=== PATIENT | male | born 1935 | race Caucasian/White ===

== ENCOUNTER 2020-04-27 14:55 | Emergency (ER) | payer MEDICARE, OTHER ==
[~2020-04-27] VITALS: Ht 180.3 cm; Wt 104.3 kg
[~2020-04-27 14:55] MED LIST: ALEVE220 MG PO; ASPIRIN EC325 MG PO; BENADRYL25 MG PO; CARVEDILOL12.5 MG PO; CLONIDINE HCL0.1 MG PO; COZAAR100 MG PO; CRESTOR10 MG PO; FINASTERIDE5 MG PO; FLONASE ALLERG9.9 ML NS; FLONASE2 SPRAY NS; GLIPIZIDE XL10 MG PO; HYDROCHLOROTHIA25 MG PO; ICAPS TABLET1 EACH PO; LEVOTHYROXINE75 MCG PO; LOVENOX40 MG SUB-Q; METFORMIN HCL1000 MG PO; OMEPRAZOLE20 MG PO; PRAVASTATIN SOD20 MG PO; PREDNISONE20 MG PO; SENNA8.6 MG PO; VERAPAMIL HCL120 MG PO; VITAMIN D5000 UNIT PO
[2020-04-27] MEDS ORDERED: PROSCAR5 MG PO (16:07)
[2020-04-27] MEDS ORDERED: LEVOTHYROXINE75 MC1 PO (16:07)
[2020-04-27] MEDS ORDERED: OMEPRAZOLE20 M2 PO (16:07)
[2020-04-27] MEDS ORDERED: FLOMAX0.4 MG PO (16:08)
[2020-04-27] MEDS ORDERED: ELIQUIS5 M1 PO (16:08)
[2020-04-27] MEDS ORDERED: FLONASE ALLERG9.9 ML NAS (16:08)
[2020-04-27] MEDS ORDERED: CRESTOR10 MG PO (16:08)
[2020-04-27] MEDS ORDERED: CARTIA XT240 MG PO (16:08)
[2020-04-27] MEDS ORDERED: LISINOPRIL-HCT1 EAC1 PO (16:09)
[2020-04-27] MEDS ORDERED: GLUCOPHAGE XR500 MG PO (16:09)
[2020-04-27] MEDS ORDERED: COREG25 MG PO (16:09)
--- NOTE | 2020-04-28 07:27 | EKG ---
[facility] [address] [place] [address] Signed Normal sinus rhythm with sinus arrhythmia Normal ECG When compared with ECG of 09-DEC-2015 14:48, Sinus rhythm has replaced Atrial flutter Confirmed by ADAM WARD MD ([id number]) on 04/28/2020 7:26:50 AM Electronically Signed By: ADAM WARD MD 04/28/20 0727 PATIENT NAME: SHAWNJESUS CLAYTON Electrocardiogram DATE OF : 39 PHYSICIAN: ADAM WARD MD REPORT #: [id number] REPORT IS CONFIDENTIAL AND NOT TO BE RELEASED WITHOUT AUTHORIZATION
== END 2020-04-27 17:39 | disposition home or self-care (01) ==
LOC: ED 14:55
DX: R55 Syncope and collapse (principal); S93.601A Unspecified sprain of right foot, initial encounter; W18.30XA Fall on same level, unspecified, initial encounter; E11.9 Type 2 diabetes mellitus without complications; I10 Essential (primary) hypertension; E03.9 Hypothyroidism, unspecified; Z88.8 Allergy status to other drugs, medicaments and biological substances; Z79.899 Other long term (current) drug therapy; Z79.84 Long term (current) use of oral hypoglycemic drugs
CPT/HCPCS: 73560; 73630; 93005; 93010; 99284-25

== ENCOUNTER 2024-06-14 06:35 | Emergency (ER) | payer MEDICARE, OTHER ==
[~2024-06-14] VITALS: Ht 180.3 cm; Wt 100.0 kg
[~2024-06-14 06:35] MED LIST changes: +CARTIA XT240 MG PO; +COREG25 MG PO; +ELIQUIS5 M1 PO; +FLOMAX0.4 MG PO; +FLONASE ALLERG9.9 ML NAS; +GLUCOPHAGE XR500 MG PO; +LEVOTHYROXINE75 MC1 PO; +LISINOPRIL-HCT1 EAC1 PO; +OMEPRAZOLE20 M2 PO; +PROSCAR5 MG PO
[2024-06-14] MEDS ORDERED: POTASSIUM CHLOR8 ME1 PO (06:45)
[2024-06-14] MEDS ORDERED: ACETAMINOPHEN 500 MG TAB PO ONE (06:45)
[2024-06-14] MEDS ORDERED: FUROSEMIDE20 MG PO (06:45)
[2024-06-14] MEDS ORDERED: AMIODARONE HCL200 MG PO (06:46)
[2024-06-14 06:51] LABS: BASOPHILS 0.5 % (0-2); EOSINOPHILS 2.6 % (0-6); HEMATOCRIT 32.1 % (35.0-50.0); HEMOGLOBIN 10.9 g/dL (12.0-18.0); MCH 30.7 (27-36); MCHC 33.9 g/dl (30-36); MCV 90.5 fl (81-99); NEUTROPHILS 77.9 % (39-80); PLATELET COUNT 237 K/uL (140-440); RBC 3.54 M/ul (4.3-5.7)
[2024-06-14 07:16] LABS: ALBUMIN 3.5 g/dL (3.4-5.0); ALBUMIN/GLOBULIN RATIO 0.92 (1.1-2.4); BILIRUBIN, TOTAL 0.5 mg/dL (0.2-1.0); BUN/CREATININE RATIO 15.84 (6.0-28.6); CALCIUM 8.8 mg/dL (8.5-10.1); CREATININE, SERUM 1.01 mg/dL (0.70-1.30); PROTEIN, TOTAL 7.3 g/dL (6.4-8.2)
[2024-06-14 07:36] LABS: INFLUENZA B NAA NEGATIVE (NEGATIVE); RESPIRATORY SYNCYTIAL VIR NAA NEGATIVE (NEGATIVE)
[2024-06-14] MEDS ORDERED: AMOX TR-K CLV1 EAC1 PO (07:50)
[2024-06-14] MEDS ORDERED: VENTOLIN HFA18 GM INH (07:52)
[2024-06-14] MEDS ORDERED: AMOXICILLIN/CLAVULANATE K 875 MG TAB PO ONE (08:00)
[2024-06-14 08:03] VITALS: BP 181/78
--- NOTE | 2024-06-15 18:39 | EKG ---
[facility] [address] [facility] [place], [place] [address] Signed Sinus rhythm with 1st degree AV block Otherwise normal ECG When compared with ECG of 27-APR-2020 16:39, TN interval has increased Confirmed by Tashi Rawls MD ([id number]) on 06/15/2024 6:38:52 PM Electronically Signed By: TASHI RAWLS MD 06/15/24 1839 PATIENT NAME: SHAWNJESUS CLAYTON Electrocardiogram DATE OF : 39 PHYSICIAN: TASHI RAWLS MD REPORT #: [id number] REPORT IS CONFIDENTIAL AND NOT TO BE RELEASED WITHOUT AUTHORIZATION
== END 2024-06-14 08:05 | disposition home or self-care (01) ==
LOC: ED 06:35
PROVIDERS: Family Medicine
DX: R06.02 Shortness of breath (principal); J32.0 Chronic maxillary sinusitis; S02.5XXA Fracture of tooth (traumatic), initial encounter for closed fracture; E11.9 Type 2 diabetes mellitus without complications; E03.9 Hypothyroidism, unspecified; I10 Essential (primary) hypertension; Z88.8 Allergy status to other drugs, medicaments and biological substances; Z79.890 Hormone replacement therapy; Z79.01 Long term (current) use of anticoagulants; Z79.84 Long term (current) use of oral hypoglycemic drugs; Z79.899 Other long term (current) drug therapy; X58.XXXA Exposure to other specified factors, initial encounter
CPT/HCPCS: 36415; 70450; 71045; 80053; 83880; 84484; 85025; 87502; 93005; 93010; 99285-25; U0002

== ENCOUNTER 2024-06-26 05:42 | Inpatient (IN) | payer MEDICARE, OTHER ==
[~2024-06-26] VITALS: Ht 180.3 cm; Wt 99.2 kg
[~2024-06-26 05:42] MED LIST changes: +24 HOUR ALLERG9.9 ML NAS; +AMIODARONE HCL200 MG PO; +AMOX TR-K CLV1 EAC1 PO; -ELIQUIS5 M1 PO; +ELIQUIS5 MG PO; -FLONASE ALLERG9.9 ML NAS; +FUROSEMIDE20 MG PO; +POTASSIUM CHLOR8 ME1 PO; +ROSUVASTATIN CA10 MG PO; +VENTOLIN HFA18 GM INH
[2024-06-26 05:59] LABS: BASOPHILS 0.1 % (0-2); EOSINOPHILS 0.1 % (0-6); HEMATOCRIT 32.7 % (35.0-50.0); LYMPHOCYTES 3.8 % (24-44); MCH 30.4 (27-36); MCHC 33.5 g/dl (30-36); MCV 90.7 fl (81-99); MONOCYTES 6.1 % (0-12); NEUTROPHILS 89.9 % (39-80); PLATELET COUNT 264 K/uL (140-440); RDW 15.2 (10.5-15.0)
[2024-06-26 06:23] LABS: ALBUMIN 3.3 g/dL (3.4-5.0); ALBUMIN/GLOBULIN RATIO 0.87 (1.1-2.4); ANION GAP 11.8 (7-21); BILIRUBIN, TOTAL 0.6 mg/dL (0.2-1.0); BUN/CREATININE RATIO 16.03 (6.0-28.6); CALCIUM 8.7 mg/dL (8.5-10.1); CREATININE, SERUM 1.06 mg/dL (0.70-1.30); POTASSIUM 3.8 mmol/L (3.5-5.1); PROTEIN, TOTAL 7.1 g/dL (6.4-8.2); TSH, 3RD GENERATION 1.277 uIU/mL (0.358-3.740)
[2024-06-26] MEDS ORDERED: PIPERACILLIN/TAZOBACTAM 3.375 GM in SODIUM CHLORIDE 0.9% 100 ML IV ONE (07:00)
[2024-06-26] MEDS ORDERED: ondansetron HCL 4 MG/2 ML VIAL IV ONE (07:00)
[2024-06-26] MEDS ORDERED: ondansetron HCL 4 MG/2 ML VIAL IV PRN ×3 (07:00→13:45)
[2024-06-26] MEDS ORDERED: metroNIDAZOLE/SODIUM CHLORIDE 500 MG/100 ML PIGGYBACK IV ONE (07:00)
[2024-06-26] MEDS ORDERED: FAMOTIDINE 20 MG/ 2 ML VIAL IV ONE (07:00)
[2024-06-26] MEDS ORDERED: LACTATED RINGER'S 1,000 ML IV SCH ×3 (07:00→13:45)
[2024-06-26] MEDS ORDERED: MORPHINE SULFATE 10 MG/ML VIAL IV PRN (07:00)
[2024-06-26] MEDS ORDERED: MORPHINE SULFATE 4 MG/ML VIAL IV ONE ×2 (07:00→07:15)
[2024-06-26 07:04] LABS: BILIRUBIN, URINE NEGATIVE (negative); BLOOD/HGB, URINE NEGATIVE (Negative); KETONE, URINE NEGATIVE (Negative); LEUK ESTERASE, URINE NEGATIVE (negative); NITRITE, URINE NEGATIVE (negative)
[2024-06-26 07:08] LABS: INR 1.29 (0.80-1.30); PARTIAL THROMBOPLASTIN TIME 32.3 Sec (22.9-41.3); PROTIME 15.3 Sec (11.2-14.2)
[2024-06-26 07:13] LABS: RED BLOOD CELLS, URINE 0-1 /hpf (0-5); WHITE BLOOD CELLS, URINE 0-1 /HPF (0-5)
[2024-06-26 07:14] LABS: BACTERIA, URINE NONE SEEN /hpf (negative); CASTS, URINE NONE SEEN \\lpf; COLLECTION TYPE, URINE CLEAN CATCH; CRYSTALS, URINE NONE SEEN (0-1+); EPITHELIAL CELLS, URINE 0 /lpf (0-1+); REFLEX CULTURE, URINE No (No)
[2024-06-26 07:49] VITALS: BP 101/77
[2024-06-26] MEDS ORDERED: FAMOTIDINE 20 MG/ 2 ML VIAL IV SCH ×3 (09:00→13:41)
--- NOTE | 2024-06-26 09:10 | NUR ---
IV ABX INFUSING. PATIENT REPORTS PAIN IS FURTHER REDUCED TO 2/10. PATIENT UP TO BATHROOM WITH 1PA AND CANE TO VOID. ALLERGY BAND TO RIGHT ARM. GALLBLADDER BOOKLET GIVEN TO PATIENT. PATIENT REPORTS THAT HE TOOK HIS ELOQUIS LAST NIGHT AT MIDNIGHT. SON IN ROOM.
[2024-06-26 09:22] VITALS: BP 161/59
--- NOTE | 2024-06-26 09:26 | NUR ---
PATIENT IN BED AT THIS TIME. UNIFORM PATROL POLICE OFFICER CHARTED VITALS AND I&O'S. CALL LIGHT WITHIN REACH, NO FURTHER NEEDS.
--- NOTE | 2024-06-26 09:57 | NUR ---
CALL TO PACU TO GIVE DR. CARR A MSG REGARDING PATIENT'S HOME MEDICATIONS.
--- NOTE | 2024-06-26 10:28 | NUR ---
PATIENT GIVEN 4MG OF IV MORPHINE FOR 6/10 RLQ PAIN. PATIENT UP TO BATHROOM WITH 1PA AND CANE TO VOID. NO OTHER NEEDS AT THIS TIME.
--- NOTE | 2024-06-26 10:40 | NUR ---
Spoke with Raoul and two of his adult sons. Pt lives in a 2 story home. He has 2 steps into the home. He does not use the basement. He has a walker and a cane. He also has a CPAP, but does not use it. He denies any needs. He denies financial or safety concerns. He will go home on discharge. Son, Navjot, lives 2 blocks away and will assist and check on him as needed.
--- NOTE | 2024-06-26 11:01 | EKG ---
[facility] [address] [facility] [place] [address] Signed Accelerated Junctional rhythm Abnormal ECG When compared with ECG of 14-JUN-2024 06:48, Junctional rhythm has replaced Sinus rhythm Confirmed by Willis Beach DO ([id number]) on 06/26/2024 11:00:53 AM Electronically Signed By: WILLIS BEACH DO 06/26/24 1101 PATIENT NAME: JESUS ESCOBAR CLAYTON Electrocardiogram DATE OF : 39 PHYSICIAN: WILLIS BEACH DO REPORT #: [id number] REPORT IS CONFIDENTIAL AND NOT TO BE RELEASED WITHOUT AUTHORIZATION
[2024-06-26] MEDS ORDERED: VENTOLIN HFA18 GM INH (11:42)
[2024-06-26] MEDS ORDERED: LISINOPRIL20 MG PO (11:50)
[2024-06-26] MEDS ORDERED: DILTIAZEM 24HR120 MG PO (11:51)
--- NOTE | 2024-06-26 12:44 | NUR ---
IVF TO 75ML/HR. PATIENT IS RESTING IN BED, DENIES NEEDS.
[2024-06-26] MEDS ORDERED: MORPHINE SULFATE 4 MG/ML VIAL IV PRN ×2 (12:45→13:45)
--- NOTE | 2024-06-26 13:00 | NUR ---
UR CLINICAL REVIEW: 2MN TAMERA, MEETS OBS FOR CHOLECYSTITIS IV FLUIDS, IV ANTIBIOTICS MEDICARE OBS 06/26/2024 @ 0657 ORDER MATCHES REG NO AUTH REQUIRED PER MEDICARE RULES PLAN TO DC TO HOME.
[2024-06-26 13:28] VITALS: BP 137/60
[2024-06-26] MEDS ORDERED: PIPERACILLIN/TAZOBACTAM 3.375 GM in SODIUM CHLORIDE 0.9% 100 ML IV SCH ×2 (14:00)
[2024-06-26] MEDS ORDERED: metroNIDAZOLE/SODIUM CHLORIDE 500 MG/100 ML PIGGYBACK IV SCH ×2 (14:00→20:00)
--- NOTE | 2024-06-26 14:32 | NUR ---
PATIENT IS RESTING IN BED, DENIES PAIN. IV CEFAPIME AND FLAGYL INFUSING. PATIENT REPORTS PAIN IS LOW 4/10. VISITOR IN ROOM TO SEE PATIENT.
[2024-06-26] MEDS ORDERED: LIDOCAINE HCL 4% 1 EACH PATCH TD SCH (14:41)
[2024-06-26] MEDS ORDERED: FUROSEMIDE 20 MG/2 ML VIAL IV SCH (15:06)
[2024-06-26] MEDS ORDERED: IBLOOD GLUCOSE TEST STRIP 1 EA TEST XX PRN (15:15)
[2024-06-26] MEDS ORDERED: GLUCAGON,HUMAN RECOMBINANT 1 MG/ML VIAL SUB-Q PRN (15:15)
[2024-06-26] MEDS ORDERED: DEXTROSE 5% 1,000 ML IV PRN (15:15)
[2024-06-26] MEDS ORDERED: DEXTROSE 50% 50 ML SYR IV PRN ×2 (15:15)
[2024-06-26] MEDS ORDERED: AMIODARONE HCL 200 MG TAB PO SCH ×2 (16:00)
--- NOTE | 2024-06-26 16:19 | NUR ---
PATIENT GIVEN DAILY DOSE OF LASIX, PACERONE. COMMODE IN ROOM AND NEAR BED. PATIENT IS ABLE TO DEMONSTRATE INDEPENDANCE IN USING COMMODE TO VOID. PATIENT RATES PAIN 4/10 POST PAIN MEDICATIONS.
[2024-06-26] MEDS ORDERED: INSULIN LISPRO 100 UNIT/ML ML SUB-Q SCH (17:00)
[2024-06-26] MEDS ORDERED: IBLOOD GLUCOSE TEST STRIP 1 EA TEST VI SCH (17:00)
--- NOTE | 2024-06-26 17:15 | NUR ---
PATIENT GIVEN 1 UNIT OF INSULIN TO LEFT ARM.
[2024-06-26 17:47] VITALS: BP 133/57
--- NOTE | 2024-06-26 18:13 | NUR ---
PATIENT ADVANCED TO ADA/2G NA DIET. PATIENT IS HESITANT TO EAT MUCH AT THIS POINT. ABD PAIN IS REDUCED TO 4/10. PATIENT IS FREQUENTLY VOIDING TO COMMODE NEAR BED FREQUENTLY.
--- NOTE | 2024-06-26 18:26 | NUR ---
PATIENT IN BED AT THIS TIME. ELECTRONICS REPAIR TECHNICIAN CHARTED VITALS AND I&O'S. PATIENT DID NOT WANT TO EAT DINNER AT THE MOMENT BUT WANTED TO KEEP TRAY IN ROOM. CALL LIGHT WITHIN REACH, NO FURTHER NEEDS AT THIS TIME.
--- NOTE | 2024-06-26 19:23 | NUR ---
REPORT RECEIVED FROM DAY SHIFT RN. PATIENT RESTING IN CHAIR WITH VISITORS IN ROOM. PATIENT DENIES NEEDS AT THIS TIME. CALL LIGHT IN REACH.
[2024-06-26 20:18] VITALS: BP 147/56
--- NOTE | 2024-06-26 20:22 | NUR ---
VAN CDL DRIVER OBTAINED VITALS AND I&O. PT STATES NO NEEDS AT THIS TIME. CALL LIGHT WITHIN REACH.
[2024-06-26 20:30] VITALS: BP 147/56
--- NOTE | 2024-06-26 20:43 | NUR ---
PATIENT RESTING IN BED. ASSESSMENT COMPLETE. PATIENT STATES THAT HE IS BLOATED BUT "LESS BLOATED THAN WHEN HE CAME IN TO THE HOSPITAL". BOWEL TONES ACTIVE. IV FLUSHES WNL. BED ALARM ON. CALL LIGHT IN REACH.
[2024-06-26] MEDS ORDERED: LIDOCAINE PATCH REMOVAL 1 EA TD SCH (21:00)
--- NOTE | 2024-06-26 21:52 | NUR ---
SCHEDULED MEDICATION ADMINISTERED. PATIENT EDUCATED TO ROOM AND CALL LIGHT. PATIENT HAS NO FURTHER NEEDS. CALL LIGHT IN REACH. BED ALARM ON.
--- NOTE | 2024-06-26 23:10 | NUR ---
PATIENT RESTING IN BED. RESPIRATIONS EVEN AND UNLABORED. CALL LIGHT IN REACH.
[2024-06-27] VITALS (12 sets, daily range): BP systolic 114–145; BP diastolic 45–68
--- NOTE | 2024-06-27 00:51 | NUR ---
PATIENT RESTING IN BED. VS AND I&Os OBTAINED AND RECORDED. LEFT AC IV WINDOW DRESSING RE-DRESSED. IV FLUSHES WNL WITH BLOOD RETURN. PATIENT DENIES FURTHER NEEDS. CALL LIGHT IN REACH.
--- NOTE | 2024-06-27 01:55 | NUR ---
CALL LIGHT ANSWERED. PATIENT UP TO BSC USING MINIMAL SBA TO VOID. PATIENT BACK TO BED. NO FURTHER NEEDS AT THIS TIME. CALL LIGHT IN REACH. BED ALARM ON.
--- NOTE | 2024-06-27 04:12 | NUR ---
CALL LIGHT ANSWERED. PT WANTED TO MOVE BACK TO BED. JANITORIAL CLEANER OBTAINED PT STANDIING WEIGHT AND ASSISTE PT BACK TO BED. VITALS AND I&O OBTAINED. PT COMPLAINING OF PAIN. IT SYSTEMS ADMINISTRATOR NOTIFED. PT STATES NO FURTHER NEEDS AT THIS TIME. CALL LIGHT WITHIN REACH.
--- NOTE | 2024-06-27 04:35 | NUR ---
PATIENT REPORTING ABD PAIN AND REQUESTING A "LOWER DOSE OF PAIN MEDICATION" THAN HE GOT BEFORE. PRN PAIN MEDICATION ADMINISTERED. PATIENT HAS NO FURTHER NEEDS. CALL LIGHT IN REACH.
[2024-06-27 05:40] LABS: BASOPHILS 0.1 % (0-2); EOSINOPHILS 0.8 % (0-6); HEMATOCRIT 30.8 % (35.0-50.0); HEMOGLOBIN 10.3 g/dL (12.0-18.0); LYMPHOCYTES 3.4 % (24-44); MCH 30.3 (27-36); MCHC 33.5 g/dl (30-36); MCV 90.5 fl (81-99); MONOCYTES 6.3 % (0-12); NEUTROPHILS 89.4 % (39-80); PLATELET COUNT 237 K/uL (140-440); RDW 14.5 (10.5-15.0)
--- NOTE | 2024-06-27 05:50 | NUR ---
SCHEDULED MEDICATION ADMINISTERED. IV ABX INFUSING PER ORDER. PATIENT HAS NO FURTHER NEEDS. CALL LIGHT IN REACH.
[2024-06-27 05:58] LABS: ALBUMIN 2.7 g/dL (3.4-5.0); ALBUMIN/GLOBULIN RATIO 0.77 (1.1-2.4); ANION GAP 10.7 (7-21); BILIRUBIN, TOTAL 0.8 mg/dL (0.2-1.0); CALCIUM 8.1 mg/dL (8.5-10.1); POTASSIUM 3.7 mmol/L (3.5-5.1); PROTEIN, TOTAL 6.2 g/dL (6.4-8.2)
--- NOTE | 2024-06-27 06:56 | NUR ---
PATIENT IS LYING IN BED WITH EYES OPEN AND RESPIRATIONS ARE EVEN AND UNLABORED. PATIENT STATED NO NEEDS AT THIS TIME. THIS RN RECEIVED REPORT FROM JORDY GARCIA. CALL LIGHT AND PERSONAL BELONGINGS ARE WITHIN REACH.
[2024-06-27] MEDS ORDERED: LEVOTHYROXINE SODIUM 75 MCG TAB PO SCH (07:00)
--- NOTE | 2024-06-27 08:16 | NUR ---
0800 AND 0900 MEDICATIONS ADMINISTERED PER THE EMAR. PATIENT IS LYING IN BED WITH HOB ELEVATED. PATIENT WITH EYES OPEN RESPIRATIONS ARE EVEN AND UNLABORED. ROUNDED ON THE PATIENT AT THIS TIME. BREAKFAST TRAY SET UP IN FRONT OF THE PATIENT. FRESH CUP OF ICE WATER PROVIDED. PATIENT STATED NO FURTHER NEEDS AT THIS TIME. CALL LIGHT AND PERSONAL BELONGINGS ARE WITHIN REACH.
[2024-06-27] MEDS ORDERED: FAMOTIDINE 20 MG TAB PO SCH (09:00)
[2024-06-27] MEDS ORDERED: FINASTERIDE 5 MG TAB PO SCH (09:00)
[2024-06-27] MEDS ORDERED: MAGNESIUM SULFATE 2 GM/50 ML BAG IV ONE ×2 (09:00→15:15)
--- NOTE | 2024-06-27 09:16 | NUR ---
PATIENT IS LYING IN BED WITH HOB ELEVATED. HE IS WATCHING TV AND SCROLLING ON HIS PHONE. IV FLUIDS AND ANTIBIOTIC STILL INFUSING. PATIENT DENIES ANY NEEDS AT THIS TIME. CALL LIGHT AND PERSONAL BELONGINGS ARE WITHIN REACH.
--- NOTE | 2024-06-27 09:20 | NUR ---
VISITED DURING SPIRITUAL CARE ROUNDS. PT IN OVERALL GOOD SPIRITS, TALKED OF FAMILY, FRANSISCO SOURCES OF STRENGTH. NO IMMEDIATE NEEDS. RADIO COMMUNICATIONS MECHANICIAN PROVIDED SUPPORTIVE PRESENCE, HOSPITALITY, PRAYER. PT EXPRESSED GRATITUDE.
--- NOTE | 2024-06-27 09:26 | NUR ---
UR CLINICAL REVIEW: 2MN TAMERA, MEETS INPT FOR CHOLECYSTITIS ELIZABETH ANTIBIOTICS, IV ANALGESICS, IV FLUIDS MEDICARE INPT 06/27/2024 @ 0811 ORDER MATCHES REG NO AUTH REQUIRED PER MEDICARE RULES PLAN TO DC TO HOME WHEN MEDICALLY CLEARED
--- NOTE | 2024-06-27 09:45 | NUR ---
Spoke with Raoul. He denies needs. He would like to have his gallbladder removed, but states the Drs. are taking the conservative approach. IM letter explained. Pt cont. to plan on dc to home whenever he is released.
--- NOTE | 2024-06-27 10:25 | NUR ---
PATIENT IS SITTING ON THE EDGE OF BED WITH EYES OPEN AND RESPIRATIONS ARE EVEN AND UNLABORED. PATIENT WITH TWO VISITORS IN THE ROOM AND SITTING ON THE COUCH. FULL ASSESSMENT COMPLETE AND DOCUMENTED IN THE CHART. PATIENT IS ALERT AND ORIENTED TIMES FOUR. PATIENT IS A SBA ASSIST WITH A CANE TO THE BEDSIDE COMMODE. PATIENT WITH GENERALIZED WEAKNESS NOTED. PATIENT IS ON A 60 GRAM CARB, 2 GRAM SODIUM DIET, AND LOW FIBER DIET. BOWEL TONES ARE ACTIVE IN ALL FOUR QUADRANTS. PATIENT IS ON ROOM AIR AND LUNG SOUDNS ARE CLEAR THROUGHOUT. PATIENT WITH LR INFUSING AT 75 ML/HR. MURMUR HEARD ON CARDIAC AUSCULTATION. RADIAL PULSES ARE STRONG AND PEDAL PULSES ARE FAINT BIALTERALLY. CAPILLARY REFILL IN THE UPPER AND LOWER EXTREMITIES IS LESS THAN 3 SECONDS BILATERALLY. DEPENDENT EDEMA NOTED TO THE BILATERAL LOWER EXTRMEITIES. SENSATION INTACT WITH NO COMPLAINTS OF NUMBNESS OR TINGLING. IV FLUSHED WITH 10 ML NORMAL SALINE. IV DRESSING IS CLEAN, DRY, AND INTACT. PATIENT RATED PAIN 3/10 IN THE RIGHT SIDE OF THE ABDOMEN. PATIENT IS NOT REQUESTING ANYTHING FOR PAIN. NO COMPLAINTS OF NAUSEA. PATIENT THEN TRANSFERRED TO THE CHAIR WITH SBA WITH CALL LIGHT WITHIN REACH. PATIENT STATED NO FURTHER NEEDS AT THIS TIME.
--- NOTE | 2024-06-27 11:09 | NUR ---
PATIENT IS LYING IN BED WITH EYES OPEN AND RESPIRATIONS EVEN AND UNLABORED. HE STATED HE WANTS TO SLEEP. CALL LIGHT AND PERSONAL BELONGINGS ARE WITHIN REACH.
--- NOTE | 2024-06-27 13:24 | NUR ---
PATIENT IS LYING IN BED WITH EYES OPEN. PATIENT WAS BROUGHT WARM BLANKET. 1400 VS TAKEN, PRIMARY NURSE NOTIFIED. CALL LIGHT AND PERSONAL BELONGINGS ARE WITHIN REACH.
--- NOTE | 2024-06-27 14:15 | NUR ---
PATIENT IS SITTING IN CHAIR WITH BLATERAL LOWER EXTREMITIES ELEVATED. PATIENT HAS EYES OPEN AND RESPIRATIONS ARE EVEN AND UNLABORED. FALL SAFETY EDUCATION WAS REINFORCED, PATIENT STATED UNDERSTANDING TO CALL WHEN HE WANTS TO MOVE. FOCUSED ASSESSMENTS WERE DOCUMENTED. PATIENT RATED PAIN 3/10 IN RIGHT FLANK THAT RADIATES TO KIDNEYS, BACK AND RIGHT SHOULDER. IV SITE WAS FLUSHED WITH 10ML NORMAL SALINE AND WNL. IV FLUID INFUSING. PATIENT'S ABDOMEN IS MILDLY DISTENDED, FIRM AND TENDER WITH PALPATION. BOWEL TONES ACTIVE THROUGHOUT. PATIENT'S PEDAL PULSES ARE FAINT, CAPILLARY REFILL IS LESS THAN 3 SECONDS. PATIENT STATED HE HAS NUMBNESS AND TINGLING AT BASELINE. CALL LIGHT AND PERSONAL BELONGINGS ARE WITHIN REACH.
--- NOTE | 2024-06-27 14:39 | NUR ---
PATIENT AMBULATED WITH PT/OT. THEY ARE CURRENTLY SITTING UP IN THE RECLINER. CALL LIGHT AND PERSONAL ITEMS ARE WITHIN REACH.
--- NOTE | 2024-06-27 15:25 | NUR ---
PATIENT LYING IN BED WITH HOB ELEVATED. PATIENT IS CONVERSING WITH TWO VISITORS. IV FLUIDS INFUSING. BED ALARM ON. CALL LIGHT AND PERSONAL BELONGINGS ARE WITHIN REACH.
--- NOTE | 2024-06-27 16:22 | NUR ---
PATIENT LYING IN BED WITH HOB ELEVATED. PATIENT CONVERSING WITH TWO VISITORS. 1600 MEDICATIONS ADMINISTERED PER EMAR. BED ALARM ON AND PATIENT VERBALIZED UNDERSTANDING TO CALL. PATIENT BELONGINGS AND CALL LIGHT ARE WITHIN REACH.
--- NOTE | 2024-06-27 16:48 | NUR ---
In with pt in response to call light, pt needs to use the bathroom. SBA with line and tube mgmnt while pt ambulates to void in toilet (with fww). Pt tolerated activity well with no c/o dizziness or lightheadedness with standing, position changes, or ambulation. Pt back to bed, bed alarm set, call light in reach.
--- NOTE | 2024-06-27 17:20 | NUR ---
PATIENT IS LYING IN BED WITH HOB ELEVATED. VITAL SIGNS TAKEN AND MEWS SCORE DOCUMENTED IN CHART. PATIENT RESTING IN BED WITH EYES OPEN AND EVEN RESPIRATIONS. PATIENT DENIES FURTHER NEEDS AT THIS TIME. DINNER TRAY AT BEDSIDE, PATIENT STATED HE WAS NOT HUNGRY YET. CALL LIGHT AND PERSONAL BELONGINGS ARE WITHIN REACH. BED ALARM ON.
--- NOTE | 2024-06-27 18:18 | NUR ---
PATIENT IS LYING IN BED WITH HOB ELEVATED. PATIENT REPORTS SOB. RN EDUCATED PATIENT ON REPOSITIONING UP IN BED. PATIENT STATED HE WOULD DO THAT. PATIENT REPORTS PAIN IN THE ABDOMEN HAS INCREASED TO A 5/10 AND IS REQUESTING TYLENOL AT THIS TIME. PATIENT WITH A VISITOR SITTING IN THE CHAIR AT BEDSIDE. THIS RN CALLED WITH NO ANSWER.
--- NOTE | 2024-06-27 18:21 | NUR ---
PATIENT REFUSED MORPHINE AT THIS TIME DUE TO REQUESTING TYLENOL AND IT NOT BEING IN THE ORDERS.
--- NOTE | 2024-06-27 18:44 | NUR ---
NOTIFIED OF PATIENT REQUESTING TYLENOL FOR PAIN RATHER THAN TAKING THE MORPHINE. MD GAVE TELEPHONE ORDER FOR 1,000 MG TYLENOL Q8 HOURS PRN FOR PAIN AND FEVER. MD ALSO STATED TO GET A CBC IN THE MORNING. MD WITH NO FURTHER ORDERS AT THIS TIME. CALL ENDED.
[2024-06-27] MEDS ORDERED: ACETAMINOPHEN 500 MG TAB PO PRN (18:45)
--- NOTE | 2024-06-27 19:26 | NUR ---
REPORT RECEIVED FROM DAY SHIFT RN. PATIENT REQUESTING PAIN MEDICATION. PRN PAIN MEDICATION ADMINISTERED FOR 5/10 ABD PAIN. PATIENT DENIES FURTHER NEEDS AT THIS TIME. BED ALARM ON. CALL LIGHT IN REACH.
--- NOTE | 2024-06-27 21:42 | NUR ---
PATIENT RESTING IN BED. VS AND I&Os OBTAINED AND RECORDED. SCHEDULED MEDICATION ADMINISTERED. PATIENT DENIES PAIN AT THIS TIME, JUST REPORTS "SOME TENDERNESS". ASSESSMENT COMPLETE. BOWEL TONES ACTIVE. BED ALARM ON. CALL LIGHT IN REACH. IV FLUSHES WNL.
--- NOTE | 2024-06-27 21:55 | NUR ---
CALL LIGHT ANSWERED. PT NEEDED TO USE BATHROOM. INSURANCE UNDERWRITER SBA TO BATHROOM. PT VOIDED AND ASSISTED BACK TO BED. PT STATES NO FURTHER NEEDS AT THIS TIME. CALL LIGHT WITHIN REACH AND BED ALARM ON.
--- NOTE | 2024-06-27 23:21 | NUR ---
NEW BAG IV ABX INFUSING PER ORDER. PATIENT RESTING IN BED WITH EYES CLOSED. RESPIRATIONS EVEN AND UNLABORED. CALL LIGHT IN REACH.
[2024-06-28] VITALS (10 sets, daily range): BP systolic 125–166; BP diastolic 49–87
--- NOTE | 2024-06-28 01:23 | NUR ---
PATIENT RESTING IN BED ON BACK WITH EYES CLOSED. RESPIRATIONS EVEN AND UNLABORED. CALL LIGHT IN REACH. BED ALARM ON.
--- NOTE | 2024-06-28 01:42 | NUR ---
CALL LIGHT ANSWERED. PATIENT UP TO BSC USING 1P SBA TO VOID. PATIENT BACK TO BED. PATIENT HAS NO FURTHER NEEDS. BED ALARM ON. CALL LIGHT IN REACH.
--- NOTE | 2024-06-28 02:33 | NUR ---
CALL LIGHT ANSWERED, pt UP AND VOIDED 200MLS VIA STANDING AND VOIDED INTO BSC BUCKET. pt BACK IN BED, BOOSTED SELF IN BED. ALARM RESUMED AND CALL LIGHT IN REACH.
--- NOTE | 2024-06-28 05:00 | NUR ---
PATIENT RESTING ON BED. VS, STANDING WEIGHT, AND I&Os OBTAINED AND RECORDED. ASSESSMENT COMPLETE. PATIENT REPORTS 5/10 ABD PAIN. CALL LIGHT IN REACH. BED ALARM ON.
--- NOTE | 2024-06-28 05:13 | NUR ---
PATIENT REPORTS 5/10 ABD PAIN. PRN PAIN MEDICATION ADMINSITERED. NO FURTHER NEEDS. CALL LIGHT IN REACH. BED ALARM ON.
[2024-06-28 05:20] LABS: BASOPHILS 0.3 % (0-2); EOSINOPHILS 0.5 % (0-6); HEMATOCRIT 30.9 % (35.0-50.0); HEMOGLOBIN 10.3 g/dL (12.0-18.0); LYMPHOCYTES 3.9 % (24-44); MCH 30.1 (27-36); MCHC 33.3 g/dl (30-36); MCV 90.5 fl (81-99); MONOCYTES 5.9 % (0-12); NEUTROPHILS 89.4 % (39-80); PLATELET COUNT 250 K/uL (140-440); RBC 3.42 M/ul (4.3-5.7); RDW 14.6 (10.5-15.0)
--- NOTE | 2024-06-28 06:39 | NUR ---
SCHEDULED IV ABX INFUSING PER ORDER. PATIENT STATES "I HAVE FINALLY PASSED SOME GAS SINCE I HAVE BEEN HERE!". NO FURTHER NEEDS AT THIS TIME. CALL LIGHT IN REACH.
--- NOTE | 2024-06-28 07:03 | NUR ---
REPORT RECEIVED FROM CANAL BOAT OPERATOR RN RADHA. PATIENT IS LYING IN BED WITH HOB ELEVATED WITH EYES OPEN AND RESPIRATIONS ARE EVEN AND UNLABORED. FLAGYL DOSE COMPLETE AND TAKEN OFF THE IV PUMP. PATIENT STATED NO FURTHER NEEDS AT THIS TIME. CALL LIGHT AND PERSONAL BELONGINGS ARE WITHIN REACH.
--- NOTE | 2024-06-28 07:45 | NUR ---
PATIENT IS LYING IN BED WITH HOB ELEVATED AND EYES CLOSED AND RESPIRATIONS ARE EVEN AND UNLABORED UPON RN ENTERING THE ROOM. PATIENT IS ALERT AND ORIENTED TIMES FOUR. PATIENT IS A SBA WITH A FWW. PATIENT WITH GENERALIZED WEAKNESS NOTED. PATIENT WORKS WITH PT AND CHAIR/BED ALARMS ARE NEEDED. PATIENT IS ON A 60 GRAM CARB DIET WITH 2 GRAM SODIUM DIET AND LOW FAT DIET. BOWEL TONES ARE ACTIVE IN ALL FOUR QUADRANTS. PATIENT WITH MODERATE DISTENTION AND THE ABDOMEN IS TENDER TO PALPATION. PATIENT IS ON ROOM AIR AND LUNG SOUNDS ARE CLEAR THROUGHOUT. LR IS INFUSING AT 75 ML/HR. ZOSYN IS INFUSING AT 25 ML/HR. IV DRESSING IS CLEAN, DRY, AND INTACT. MURMUR HEARD ON CARDIAC AUSCULTATION. RADIAL PULSES ARE STRONG BILATERALLY AND PEDAL PULSES ARE FAINT BILATERALLY. CAPILLARY REFILL IN THE UPPER AND LOWER EXTREMITIES IS LESS THAN 3 SECONDS BILATERALLY. BLE WITH DEPENDENT EDEMA. SENSATION INTACT WITH NO COMPLAINTS OF NUMBNESS OR TINGLING. PATIENT WITH NO COMPLAINTS OF NAUSEA. PATIENT RATED PAIN 4/10 IN THE RIGHT SIDE OF THE ABDOMEN. PATIENT IS NOT REQUESTING ANYTHING FOR PAIN AT THIS TIME. PATIENT STATED NO FURTHER NEEDS AT THIS TIME. CALL LIGHT AND PERSONAL BELONGINGS ARE WITHIN REACH.
--- NOTE | 2024-06-28 07:52 | NUR ---
PATIENT IS SITTING CHAIR WITH BILATERAL LOWER EXTREMITIES ELEVATED. PATIENT WAS LYING IN BED, THEN GO UP TO USE COMMODE. AFTER VOIDING HE AMBULATED WELL TO THE CHAIR. HE DENIED FEELING DIZZY OR LIGHTHEADED. PATIENT HAS IV FLUIDS AND ZOSYN NFUSING PER EMAR. LAB IS IN TO DRAW LABS. CALL LIGHT AND PERSONAL BELONGINGS ARE WITHIN REACH.
[2024-06-28 08:17] LABS: ALBUMIN 2.4 g/dL (3.4-5.0); ALBUMIN/GLOBULIN RATIO 0.63 (1.1-2.4); ANION GAP 9.7 (7-21); BILIRUBIN, TOTAL 0.5 mg/dL (0.2-1.0); CALCIUM 8.2 mg/dL (8.5-10.1); POTASSIUM 3.7 mmol/L (3.5-5.1); PROTEIN, TOTAL 6.2 g/dL (6.4-8.2)
--- NOTE | 2024-06-28 08:50 | NUR ---
PATIENT SITTING IN CHAIR WITH LOWER EXTREMITIES ON THE FLOOR. PATIENT HAS EYES OPEN AND RESPIRATIONS ARE EVEN AND UNLABORED. PATIENT IS TALKING WITH SURGEON AND PRIMARY RN, ANASTACIO ABOUT TREATMENT OPTIONS. PATIENT DENIES ANY FURTHER NEEDS. IV FLUIDS AND ZOSYN INUSING. CALL LIGHT AND PERSONAL BELONGINGS ARE WITHIN REACH.
--- NOTE | 2024-06-28 09:37 | NUR ---
PATIENT IN CHAIR AT THIS TIME. READING ASSISTANT AND PATIENT WALKED 1 LAP AROUND HALLS. PATIENT USED FRONT WHEELED WALKER. CALL LIGHT WITHIN REACH, NO FURTHER NEEDS AT THIS TIME.
--- NOTE | 2024-06-28 09:45 | NUR ---
INTO SEE PATIENT. PATIENT STATES HE IS FEELING BETTER AND THAT THEY ARE MAKING A PLAN FOR TOMORROW. PATIENT SON WILL TAKE HIM ONCE MEDICALLY CLEARED FOR DISCHARE. NO CM NEEDS AT THIS TIME.
--- NOTE | 2024-06-28 09:58 | NUR ---
PATIENT IS SITTING UPRIGHT IN THE CHAIR AND SPEAKING WITH TWO VISITORS WHO ARE SITTING ON THE COUCH. IV FLUIDS DISCONTINUED. PATIENT ASKED ABOUT AMBULATING. PATIENT EDUCATED ON BEING ABLE TO WALK WITH A STAFF MEMBER AND THE WALKER. PATIENT EXPRESSED UNDERSTANDING. PATIENT STATED NO FURTHER NEEDS AT THIS TIME. CALL LIGHT AND PERSONAL BELONGINGS ARE WITHIN REACH.
[2024-06-28] MEDS ORDERED: POLYETHYLENE GLYCOL 3350 1 PACKET PO ONE (10:00)
--- NOTE | 2024-06-28 10:12 | NUR ---
PATIENT SITTING IN CHAIR WITH BILATERAL LOWER EXTERMITIES ON THE FLOOR. ZOSYN CONTINUING TO INFUSE. FIELD SEISMOLOGIST AND ONE VISITOR IN THE ROOM AT THIS TIME. CALL LIGHT AND PERSONAL BELONGINGS ARE WITHIN REACH.
--- NOTE | 2024-06-28 10:20 | NUR ---
VISITED DURING SPIRITUAL CARE ROUNDS. PT SUPPORTED BY MARY TSAI IN ROOM. BOTH IN OVERALL GOOD SPIRITS, NO IMMEDIATE NEEDS. HR SHARED SERVICES CONSULTANT PROVIDED SUPPORTIVE PRESENCE, HOSPITALITY, PRAYER, FACILITATED INTERACTION WITH THERAPY ANIMAL.
--- NOTE | 2024-06-28 10:23 | NUR ---
PATIENT IN BED AT THIS TIME. CONCEPT ARTIST ASSISTED PATIENT INTO BATHROOM FROM CHAIR AND THEN BACK TO BED. CALL LIGHT WITHIN REACH, NO FURTHER NEEDS AT THIS TIME.
--- NOTE | 2024-06-28 11:04 | NUR ---
PATIENT IS LYING IB BED WITH HOB ELEVATED. HE IS WORKING ON FINISHING HIS HengZhi. PATIENT DENIES PAIN OR NAUSEA. WE DISCUSSED WALKING ANOTHER TWO LAPS. BRANDT GRANADO, HAS BEEN ASKED TO WALK WITH HIM IN 20 MINUTES. CALL LIGHT AND PERSONAL BELONGINGS ARE WITHIN REACH.
--- NOTE | 2024-06-28 11:29 | NUR ---
PATIENT IS AMBULATING THE HALLS WITH BRANDT GRANADO, AT THIS TIME. HE FINISHED HIS MIRALAX.
--- NOTE | 2024-06-28 12:03 | NUR ---
PATIENT LYING IN BED WITH HOB ELEVATED. PATIENT HAS ONE VISITOR IN THE ROOM. PATIENT AMBULATED TO THE RESTROOM WITH A FW WALKER. HE DENIED FEELING DIZZY, LIGHT-HEADED OR SOB. HE SAID HIS LEGS FEEL WEAKER THAN NORMAL. PATIENT VOIDED 100ML YELLOW URINE. INSULIN GIVEN BY PRIMARY NURSE, ANASTACIO, PER EMAR. NOTIFIED PATIENT OF OT/PT PLANNING TO COME IN BEFORE LUNCH. CALL LIGHT AND PERSONAL BELINGINGS ARE WITHIN REACH.
--- NOTE | 2024-06-28 14:23 | NUR ---
PATIENT IS SITTING IN THE CHAIR WITH BILATERAL LOWER EXTREMITIES ELEVATED. PATIENT IS FACING THE WINDOW. AFTERNOON IV ANTIBIOTICS ARE INFUSING. FOCUSED ASSESSMENTS ARE DOCUMENTED IN THE CHART. PATIENT STATED PAIN IS A 4/10 IN THE RIGHT SIDE OF HIS ABDOMEN. HE IS NOT REQUESTING ANY PAIN MEDICATIONS AT THIS TIME. PATIENT HAS ACTVE BOWEL TONES, A MODERATELY DISTENDED, FIRM AND TENDER ABDOMEN. PRIOR TO STARTING IV INFUSIONS, IV WAS PATENT AND FLUSHED WNL. 1400 VITAL SIGNS AND MEWS WERE DOCUMENTED. PATIENT REQUESTING AMBULATING WITHIN THE NEXT HOUR. PATIENT DENIES ANY FURTHER NEEDS AT THIS TIME. CALL LIGHT AND PERSONAL BELONGINGS ARE WITHIN REACH. PATIENT'S BED LINENS WERE CHANGED.
--- NOTE | 2024-06-28 15:18 | NUR ---
PATIENT IS SITTING IN CHAIR WITH BILATERAL LOWER EXTREMITIES ELEVATED. IV ANTIBIOTIC CONTINUING TO INFUSE. PATIENT HAS TWO VISITORS IN THE ROOM SITTING ON THE COUCH. PATIENT HAS CALL LIGHT AND PERSONAL BELONGINGS WITHIN REACH. CHAIR ALARM IS ON.
--- NOTE | 2024-06-28 16:19 | NUR ---
PATIENT IS SITTING ON THE TOILET WITH IV PUMP AND WALKER BESIDE HIM. HE STATES UNDERSTANDING NEEDING TO CALL WHEN HE IS FINISHED. PATIENT STATES HE FEELS THE URGE TO DEFECATE, BUT IS UNABLE. HE DENIES HAVING RECENT FLATULENCE.
--- NOTE | 2024-06-28 17:19 | NUR ---
PATIENT IS SITTING IN CHAIR WITH BILATERAL LOWER EXTREMITIES ON FLOOR. CHAIR ALARM IS ON. PATIENT IS REQUESTING SUPPOSITORY AT THIS TIME, PRIMARY NURSE NOTIFIED. PATIENT STATES HE HAS THE URGE TO GO, BUT NOTHING IS MOVING. INCENTIVE SPIROMETER USE WAS REINFORCED. IV ZOSYN INFUSING. CALL LIGHT AND PERSONAL BELONGINGS ARE WITHIN REACH.
--- NOTE | 2024-06-28 17:41 | NUR ---
NOTIFIED OF PATIENT NOT GETTING LASIX THIS MORNING. STATED TO CONTINUE TO HOLD THAT. ALSO NOTIFIED OF PATIENT REQUESTING A SUPPOSITORY. STATED THAT HE WOULD PUT THAT ORDER IN. WITH NO FURTHER ORDERS AT THIS TIME. CALL ENDED.
[2024-06-28] MEDS ORDERED: bisacodyL 10 MG SUPP PR ONE (17:45)
--- NOTE | 2024-06-28 18:12 | NUR ---
IV ABX COMPLETED. PATIENT IS SALINE LOCKED. PATIENT AMBULATES WITH SBA AND FWW FROM RECLINER TO BED. ASSISTED TO GET COMFORTABLE. NO REQUESTS, CALL LIGHT AND PERSONAL BELONGINGS IN REACH.
--- NOTE | 2024-06-28 18:20 | NUR ---
PATIENT REPORTS HE HAS TO VOID. PATIENT AMBULATES WITH SUPERVISION AND FWW TO RESTROOM AND VOIDS. PATIENT BACK TO BED. MEDICATION ADMINISTERED, SEE MAR. PATIENT REMAINS RESTING ON LEFT SIDE IN BED, VERBALIZES UNDERSTANDING OF HOLDING MEDICATION IN LONG HE FEELS HE CAN. CALL LIGHT IN HIS HAND IN CASE OF URGENCY. NO OTHER REQUESTS AT THIS TIME.
--- NOTE | 2024-06-28 18:26 | NUR ---
PATIENT IS LYING IN BED ON HIS LEFT SIDE WITH EYES OPEN AND RESPIRATIONS ARE EVEN AND UNLABORED. CALL LIGHT AND PERSONAL BELONGINGS ARE WITHIN REACH.
--- NOTE | 2024-06-28 18:41 | NUR ---
NOTIFIED OF PATIENT HEART RATE INCREASING TO THE 110'S. STATED HE WILL RESUME THE DILTIAZEM DOSE THAT HE TAKES AT HOME. STATED HE WILL PUT THAT ORDER IN.
[2024-06-28] MEDS ORDERED: dilTIAZem HCL 120 MG CAPCR PO SCH (19:00)
--- NOTE | 2024-06-28 19:28 | NUR ---
GOT PATIENT'S STOOL SAMPLE AT 1902 AND SENT IT TO THE LAB. NURSE NOTIFIED.
--- NOTE | 2024-06-28 19:30 | NUR ---
REPORT RECEIVED FROM DAY SHIFT RN. PATIENT RESTING IN BED. DENIES NEEDS AT THIS TIME. CALL LIGHT IN REACH.
--- NOTE | 2024-06-28 19:55 | NUR ---
Assisted Pt SBA FWW from bed to bathroom and back. Pt attempted but did not have a BM.
--- NOTE | 2024-06-28 19:55 | NUR ---
PATIENT RESTING IN CHAIR. SCHEDULED MEDICATION ADMINISTERED. PATIENT HAS NO FURTHER NEEDS. CALL LIGHT IN REACH.
--- NOTE | 2024-06-28 22:10 | NUR ---
PATIENT RESTING IN BED. SCHEDULED MEDICATION ADMINISTERED. ASSESSMENT COMPLETE. PATIENT COMPLAINS OF ABD PAIN, PRN PAIN MEDICATION ADMINISTERED PER PATIENT REQUEST. BED ALARM ON. PATIENT HAS NO FURTHER NEEDS. CALL LIGHT IN REACH.
--- NOTE | 2024-06-28 23:43 | NUR ---
PATIENT RESTING IN BED ON BACK WITH EYES CLOSED. RESPIRATIONS EVEN AND UNLABORED. CALL LIGHT IN REACH.
[2024-06-29] VITALS (10 sets, daily range): BP systolic 122–153; BP diastolic 55–89
--- NOTE | 2024-06-29 01:47 | NUR ---
CALL LIGHT ANSWERED. PATIENT UP TO BSC USING 1P SBA TO VOID. PATIENT BACK TO BED. PATIENT DENIES FURTHER NEEDS AT THIS TIME. CALL LIGHT IN REACH.
[2024-06-29 05:25] LABS: BASOPHILS 0.3 % (0-2); EOSINOPHILS 0.8 % (0-6); HEMATOCRIT 31.1 % (35.0-50.0); HEMOGLOBIN 10.4 g/dL (12.0-18.0); MCH 30.6 (27-36); MCHC 33.6 g/dl (30-36); MONOCYTES 6.7 % (0-12); NEUTROPHILS 86.2 % (39-80); PLATELET COUNT 283 K/uL (140-440); RBC 3.41 M/ul (4.3-5.7); RDW 14.9 (10.5-15.0)
[2024-06-29 05:39] LABS: ALBUMIN 2.4 g/dL (3.4-5.0); ALBUMIN/GLOBULIN RATIO 0.63 (1.1-2.4); ANION GAP 11.4 (7-21); BILIRUBIN, TOTAL 0.7 mg/dL (0.2-1.0); POTASSIUM 3.4 mmol/L (3.5-5.1); PROTEIN, TOTAL 6.2 g/dL (6.4-8.2)
--- NOTE | 2024-06-29 05:57 | NUR ---
SCHEDULED MEDICATION ADMINISTERED. PATIENT REPORTS /10 ABD PAIN, PRN PAIN MEDICATION ADMINISTERED. PATIENT STATES "MY PAIN IS GETTING MUCH BETTER". PATIENT HAS NO FURTHER NEEDS AT THIS TIME. CALL LIGHT IN REACH.
--- NOTE | 2024-06-29 07:07 | NUR ---
REPORT RECEIVED FROM SHIPFITTER HELPER RN RADHA. PATIENT IS LYING IN BED WITH EYES CLOSED AND RESPIRATIONS ARE EVEN AND UNLABORED. CALL LIGHT AND PERSONAL BELONGINGS ARE WITHIN REACH.
--- NOTE | 2024-06-29 08:35 | NUR ---
PATIENT IS SITTING UPRIGHT IN THE CHAIR AND TALKING TO TWO VISITORS WHO ARE SITTING ON THE COUCH. TV IS ON. CALL LIGHT AND PERSONAL BELONGINGS ARE WITHIN REACH.
[2024-06-29] MEDS ORDERED: POTASSIUM CHLORIDE 10 MEQ TABCR PO ONE (09:00)
--- NOTE | 2024-06-29 10:20 | NUR ---
PATIENT IS SITTING IN THE CHAIR WITH BILATERAL LOWER EXTREMITIES ELEVATED. PATIENT WITH EYES OPEN AND RESPIRATIONS ARE EVEN AND UNLABORED. PATIENT WITH FAMILY MEMBER SITTING ON THE COUCH AT THIS TIME. PATIENT RATED PAIN 3/10 IN THE RIGHT SIDE OF THE ABDOMEN. PATIENT IS NOT REQUESTING ANYTHING FOR PAIN AT THIS TIME. PATIENT IS ALERT AND ORIENTED TIMES FOUR. PATIENT IS A SBA TO 1PA WITH A FRONT WHEELED WALKER. PATIENT WORKS WITH PT AND BED ALARMS AND CHAIR ALARMS ARE IN USE. PATIENT IS ON A 60 GRAM CARB DIET. BOWEL TONES ARE ACTIVE IN ALL FOUR QUADRANTS. PATIENT WITH NO COMPLAINTS OF NAUSEA. PATIENT IS ALSO ON A 2 GRAM SODIUM DIET WITH LOW FAT. PATIENT LAST BM WAS 06/29/24. PATIENT IS ON ROOM AIR AND LUNG SOUNDS ARE CLEAR BILATERALLY. PATIENT IV SITE FLUSHED WITH 10 ML NORMAL SALINE AND IS SALINE LOCKED. IV DRESSING IS CLEAN, DRY, AND INTACT. PATIENT WITH A MURMUR HEARD ON CARDIAC AUSCULTATION. RADIAL PULSES ARE STRONG BILATERALLY WITH FAINT PEDAL PULSES BILATERALLY. CAPILLARY REFILL IN THE UPPER AND LOWER EXTREMITIES IS LESS THAN 3 SECONDS BILATERALLY. DEPENDENT EDEMA NOTED IN THE BILATERAL LOWER EXTREMITIES. SENSATION INTACT WITH NO COMPLAINTS OF NUMBNESS OR TINGLING. SKIN INTACT. PATIENT WITH DISTENTION AND TENDERNESS TO THE ABDOMEN. PATIENT AND FAMILY STATED NO FURTHER NEEDS AT THIS TIME. CALL LIGHT AND PERSONAL BELONGINGS ARE WITHIN REACH.
[2024-06-29] MEDS ORDERED: APIXABAN 5 MG TAB PO SCH (10:29)
[2024-06-29] MEDS ORDERED: FUROSEMIDE 20 MG TAB PO SCH (10:46)
--- NOTE | 2024-06-29 13:00 | NUR ---
PATIENT LYING IN BED WITH HOB ELEVATED WITH TRAY INFRONT OF HIM. AFTERNOON ANTIBIOTICS ARE INFUSING. IV FLUSHED WITH 10 ML NS, IV DRESSING IS CLEAN, DRY, AND INTACT. CALL LIGHT AND PERSONAL BELONGINGS ARE WITHIN REACH.
--- NOTE | 2024-06-29 13:21 | NUR ---
PATIENT LYING IN BED AFTER AMBULATING TO THE RESTROOM. HE VOIDED 100 MLS OF CONCENTRATED URINE. PATIENT AMBULATED WITH FRONT WHEEL WALKER. PATIENT DENIED FEELING DIZZY OR LIGHT-HEADED. CALL LIGHT AND PERSONAL BELONGIGS ARE WITHIN REACH.
--- NOTE | 2024-06-29 14:06 | NUR ---
PATIENT IV PUMP IS ALARMING. IV FLAGYL REMOVED FROM THE IV PUMP. IV ZOSYN REMAINS INFUSING AT 25 ML/HR. PATIENT ROOM TEMPERATURE INCRESED PER PATIENT REQUEST. PATIENT STATED NO FURTHER NEEDS AT THIS TIME. CALL LIGHT AND PERSONAL BELONGINGS ARE WITHIN REACH.
--- NOTE | 2024-06-29 14:17 | NUR ---
PATIENT ASSISTED TO THE CHAIR AFTER USING THE BATHROOM. PATIENT USED FWW AND RN THERE FOR LINE MANAGEMENT. PATIENT IS SITTING IN THE CHAIR WITH BILATERAL LOWER EXTREMITIES ELEVATED. TWO WARM BLANKETS PROVIDED. ZOSYN IS INFUSING AT 25 ML/HR. LOY RIVERA IS IN THE ROOM NOW. PATIENT STATED NO FURTHER NEEDS AT THIS TIME. CALL LIGHT AND PERSONAL BELONGINGS ARE WITHIN REACH.
--- NOTE | 2024-06-29 15:06 | NUR ---
PATIENT IS SITTING IN THE CHAIR WITH BILATERAL LOWER EXTREMITIES ELEVATED. FOCUSED ASSESSMENTS DOCUMENTED IN THE CHART. PATIENT RATED PAIN 4/10 IN RIGHT SIDE OF ABDOMEN. PATIENT'S BOWEL TONES WERE ACTIVE IN AL 4 QUADRANTS. ABDOMEN IS TENDER WITH PALPATION AND FIRM THROUGHOUT. IV ANTIBIOTIC IS CONTINUING TO INFUSE. THERE IS NO LEAKING OR INFILTRATION AT THE IV SITE. PATIENT CONTINUES TO HAVE DEPENDENT EDEMA IN HIS BILATERAL LOWER EXTREMITIES. PATIENT HAS STRONG RADIAL PULSES AND FAINT PEDAL PULSE. PATIENT DENIES FURTHER NEEDS AT THIS TIME. CALL LIGHT AND PERSONAL BELONGINGS ARE WITHIN REACH.
--- NOTE | 2024-06-29 16:37 | NUR ---
PATIENT LYING IN BED WITH HOB ELEVATED. PATIENT IS REQUESTING A SHOWER. ZOSYN INFUSION FINISHED. IV FLUSHED WITH 10ML NS AND SALINE LOCKED. CALL LIGHT AND PERSONAL BELONGINGS ARE WITHIN REACH.
--- NOTE | 2024-06-29 17:31 | NUR ---
PATIENT IS SITTING IN THE SHOWER CHAIR WITH MIGUEL GRANADO, PRESENT. PATIENT DENIES FURTHER NEEDS. PATIENT STATES PAIN WAS 3/10 IN RIGHT ABDOMEN. HE IS NOT REQUESTING ANYTHING FOR PAIN AT THIS TIME.
--- NOTE | 2024-06-29 18:15 | NUR ---
PATIENT IS LYING IN BED WITH EVEN UNLABORED RESPIRATIONS. PATIENT HOB IS ELEVATED. CALL LIGHT AND PERSONAL BELONGINGS ARE WITHIN REACH.
--- NOTE | 2024-06-29 19:39 | NUR ---
REPORT RECEIVED FROM DAY SHIFT RN. PT LYING IN BED ALERT AND ORIENTED. DENIES NEEDS. WHITE BOARD UPDATED. CALL LIGHT IN REACH.
--- NOTE | 2024-06-29 21:30 | NUR ---
EVENING ASSESSMENT COMPLETE. SCHEDULED MEDS ADMIN PER EMAR. PT REPORTS PAIN IS TOLERABLE AT THIS TIME. DENIES NAUSEA. BOWEL TONES ACTIVE. ABD SLIGHTLY DISTENDED, SOFT. ABX INFUSING WNL. PT DENIES QUESTIONS OR CONCERNS. CALL LIGHT IN REACH.
--- NOTE | 2024-06-29 22:20 | NUR ---
PT AWAKE IN BED. IV ABX INFUSING WNL. PT DENIES NEEDS AT THIS TIME. CALL LIGHT IN REACH.
[2024-06-30] VITALS (9 sets, daily range): BP systolic 123–160; BP diastolic 55–98
--- NOTE | 2024-06-30 00:15 | NUR ---
PT RESTING IN BED WITH EYES CLOSED. RESPIRATIONS EVEN. CALL LIGHT IN REACH. BED ALARM FOR SAFETY.
--- NOTE | 2024-06-30 02:18 | NUR ---
PT IN BED RESTING WITH EYES CLOSED. RESPIRATIONS EVEN. CALL LIGHT IN REACH.
--- NOTE | 2024-06-30 02:36 | NUR ---
CALL LIGHT ANSWERED. PT UP TO BR WITH FWW AND SBA TO VOID WITH CASING MATERIAL WEIGHER ASSIST. BACK TO BED, CINDY WELL. PT DENIES PAIN OR NAUSEA. ABD ASSSESSMENT UNCHANGED. NO FURTHER NEEDS. CALL LIGHT IN REACH.
--- NOTE | 2024-06-30 04:01 | NUR ---
IV PUMP ALARMING. ISSUE RESOLVED. PT AWAKE IN BED. REQUESTING COFFEE, PROVIDED. NO FURTHER NEEDS. CALL LIGHT IN REACH.
--- NOTE | 2024-06-30 04:46 | NUR ---
PT REPORTS SOB AFTER RETURNING TO BED FROM BR. SpO2 98% ON RA. HR LOW 100'S. SOB RESOLVED AFTER JUST A FEW MINUTES. VS AND I&O OBTAINED. NO FURTHER NEEDS. CALL LIGHT IN REACH.
--- NOTE | 2024-06-30 05:30 | NUR ---
PT UP TO BR TO VOID AND HAVE LIQUID BM. DAILY WEIGHT OBTAINED. BACK TO BED, CINDY WELL. IV ABX INFUSING PER ORDER. NO FURTHER NEEDS.
--- NOTE | 2024-06-30 07:02 | NUR ---
REPORT RECEIVED FROM PERSONAL CARE AIDE JORDY RAMIREZ. PATIENT IS LYING IN BED WITH EYES CLOSED AND RESPIRATIONS ARE EVEN AND UNLABORED. CALL LIGHT AND PERSONAL BELONGINGS ARE WITHIN REACH.
--- NOTE | 2024-06-30 07:46 | NUR ---
PATIENT IN CHAIR AT THIS TIME. SAP ARIBA CONSULTANT ASSISTED PATIENT FROM BED TO CHAIR. BLOOD SUGAR TAKEN AT THIS TIME. CALL LIGHT WITHIN REACH, NO FURTHER NEEDS.
--- NOTE | 2024-06-30 08:14 | NUR ---
PATIENT IS SITTING IN THE CHAIR WITH BILATERAL LOWER EXTREMITIES ELEVATED. PATIENT IS FACING THE WINDOW. PATIENT WITH EYES OPEN AND RESPIRATION ARE EVEN AND UNLABORED. 0900 MEDICATIONS ADMINISTERED PER THE EMAR. PATIENT REPORTS PAIN IS A 1/10 IN THE RIGHT SIDE OF THE ABDOMEN. FRESH CUP OF ICE WATER PROVIDED PER PATIENT REQUEST. PATIENT STATED NO FURTHER NEEDS AT THIS TIME. CALL LIGHT AND PERSONAL BELONGINGS ARE WITHIN REACH.
--- NOTE | 2024-06-30 09:14 | NUR ---
PATIENT IS SITTING IN CHAIR WITH BILATERAL LOWER EXTREMITIES ELEVATED. PATIENT REQUESTED TWO PILLOWS BEHIND HEAD. PATIENT DENIES FURTHER NEEDS AT THIS TIME. PATIENT DENIES PAIN AT THIS TIME. CALL LIGHT AND PERSONAL BELONGINGS ARE WITHIN REACH. ZOSYN CONTINUES TO INFUSE AT THIS TIME.
--- NOTE | 2024-06-30 09:28 | NUR ---
PATIENT IN CHAIR AT THIS TIME. CAPITAL EQUIPMENT SPECIALIST CHARTED VITALS AND I&O'S. CALL LIGHT WITHIN REACH, NO FURTHER NEEDS.
--- NOTE | 2024-06-30 10:12 | NUR ---
PATIENT IS SITTING IN THE CHAIR WITH BILATERAL LOWER EXTREMITIES ELEVATED. PATIENT WITH EYES OPEN AND RESPIRATIONS ARE EVEN AND UNLABORED. PATIENT STATED NO NEEDS AT THIS TIME. CALL LIGHT AND PERSONAL BELONGINGS ARE WITHIN REACH.
--- NOTE | 2024-06-30 10:37 | NUR ---
PATIENT IS SITTING IN CHAIR WITH BILATERAL LOWER EXTREMITIES ELEVATED. IV ZOSYN FINISHED INFUSING. IV SITE FLUSHED AND SALINE LOCKED. PATEINT DENIED BURNING OR PAIN WITH FLUSHING. NO INFILTRATION OR LEAKING NOTED. PATIENT SAID HE HAD WENT TO THE BATHROOM ON HIS OWN WITH HIS IV PUMP. PATIENT RE-EDUCATED ABOUT CALLLING APPROPRIATELY FOR SAFETY. PATIENT EXPRESSED UNDERSTANDING. CALL LIGHT AND PERSONAL BELONGINGS ARE WITHIN REACH.
--- NOTE | 2024-06-30 10:45 | NUR ---
PATIENT IS SITTING IN THE CHAIR WITH BILATERAL LOWER EXTREMITIES ELEVATED. PATIENT WITH EYES OPEN AND RESPIRATIONS ARE EVEN AND UNLABORED. PATIENT IS FACING THE WINDOW. FULL ASSESSMENT COMPLETE AND DOCUMENTED IN THE CHART. PATIENT LAST BM WAS 06/29/24. PATIENT IS A SBA WITH A FWW. BED ALARMS AND CHAIR ALARMS IN USE. PATIENT WITH PT ORDERS. PATIENT IS ON A 60 GRAM CARB DIET, 2 GRAM SODIUM DIET, AND LOW FIBER DIET. BOWEL TONES ARE ACTIVE IN ALL FOUR QUADRANTS. ABDOMEN IS MILDLY DISTENDED WITH NO TENDERNESS NOTED. PATIENT WITH NO COMPLAINTS OF PAIN OR NAUSEA AT THIS TIME. PATIENT IS ON ROOM AIR WITH THE IS AT BEDSIDE. PATIENT ENCOURAGED TO BE USING THE IS TO HELP WITH PREVENTING PNEUMONIA. PATIENT LUNG SOUNDS ARE CLEAR IN THE UPPER LOBES AND WITH CRACKLES IN THE BASES BILATERALLY. IV IS SALINE LOCKED. IV DRESSING IS CLEAN, DRY, AND INTACT. CARDIAC WITH A MURMUR ON AUSCULTATION. RADIAL AND PEDAL PULSES ARE STRONG BILATERALLY. CAPILLARY REFILL IN THE UPPER AND LOWER EXTREMITIES IS LESS THAN 3 SECONDS BILATERALLY. PATIENT WITH NO EDEMA. SENSATION INTACT WITH NO COMPLAINTS OF NUMBNESS OR TINGLING. SKIN INTACT. PATIENT STATED NO FURTHER NEEDS AT THIS TIME. CALL LIGHT AND PERSONAL BELONGINGS ARE WITHIN REACH.
--- NOTE | 2024-06-30 11:28 | NUR ---
PATIENT IS SITTING UPRIGHT IN THE CHAIR WITH EYES OPEN AND RESPIRATIONS ARE EVEN AND UNLABORED. PATIENT WITH FIVE FAMILY MEMBERS IN THE ROOM AND CONVERSING WITH ONE ANOTHER. PATIENT STATED NO NEEDS AT THIS TIME. CALL LIGHT AND PERSONAL BELONGINGS ARE WITHIN REACH.
[2024-06-30] MEDS ORDERED: ALBUTEROL SULFATE 0.083% 3 ML VIAL INH PRN (12:15)
--- NOTE | 2024-06-30 13:23 | NUR ---
PATIENT IS SITTING IN CHAIR WITH BILATERAL LOWER EXTREMITIES ELEVATED. PATIENT HAS CALL LIGHT AND PERSONAL BELONGINGS ARE WITHIN REACH. PATIENT IS DENIES PAIN OR ANY FURTHER NEEDS AT THIS TIME. PATIENT STATED PLANNING ON TAKING A NAP.
--- NOTE | 2024-06-30 14:28 | NUR ---
VITAL SIGNS AND INTAKE AND OUTPUT VALUES TAKEN AND DOCUMENTED IN THE CHART. BED LINENS CHANGED AT THIS TIME. IV SITE FLUSHED WITH 10 ML NORMAL SALINE BY CARYN STUDENT NURSE. 1400 MEDICATIONS ARE INFUSING AT THIS TIME. PATIENT IS SITTING IN THE CHAIR WITH BILATERAL LOWER EXTREMITIES ELEVATED AND IS FACING THE WINDOW. FRESH CUP OF ICE WATER PROVIDED PER PATIENT REQUEST. PATIENT STATED NO FURTHER NEEDS AT THIS TIME. CALL LIGHT AND PERSONAL BELONGINGS ARE WITHIN REACH.
--- NOTE | 2024-06-30 15:34 | NUR ---
PATIENT IS SITTING IN THE CHAIR WITH HIS BLE ELEVATED AND LEGS CROSSED. PATIENT IS VISITING WITH TWO VISITORS CHATTING WITH EYES OPEN AND RESPIRATIONS EVEN AND UNLABORED. PATIENT HAS CALL LIGHT AND PERSONAL BELONGINGS WITHIN REACH. IV ANTIBIOTICS ARE INFUSING.
--- NOTE | 2024-06-30 16:38 | NUR ---
PATIENT IS LYING IN BED WITH HOB ELEVATED.PATIENT AMBULATED FROM BATHROOM WITH CANE AND SBA WITH LINE MANAGEMENT. FOCUSED ASSESSMENTS DOCUMENTED IN THE CHART. PATIENTS BOWEL TONES ARE ACTIVE, PATIENT DENIES TENDERNESS WITH PALPATION. ABDOMEN MILDLY DISTENDED, PATIENT DENIES DISTENTION AT THIS TIME. PATIENT REPORTS NO PAIN. LUNGS ARE CLEAR IN ALL LOBES. INCENTIVE SPIROMETER USE ENCOURAGED. IV ANTIBIOTICS CONTINUE TO INFUSE. PATIENT DENIES BURNING OR PAIN WITH INFUSION. INFILTRATION AND LEAKING ARE NOT NOTED AT THIS TIME. CALL LIGHT AND PERSONAL BELONGINGS ARE WITHIN REACH. PATIENT DENIES FURTHER NEEDS AT THIS TIME.
--- NOTE | 2024-06-30 19:27 | NUR ---
REPORT RECEIVED FROM DAY SHIFT RN. PT LYING IN BED ALERT AND ORIENTED. DENIES NEEDS. WHITE BOARD UPDATED. CALL LIGHT IN REACH.
--- NOTE | 2024-06-30 22:03 | NUR ---
JESUS IS AWAKE IN BED ON ROOM AIR.
--- NOTE | 2024-06-30 22:04 | NUR ---
PT UP TO BR WITH CANE AND MINIMAL SBA TO VOID AN UNMEASURED AMOUNT. GAIT STEADY. BACK TO BED, CINDY WELL. VS AND I&O OBTAINED. EVENING ASSESSMENT COMPLETE. SCHEDULED MEDS ADMIN PER EMAR. PT DENIES PAIN OR NAUSEA. ABD SOFT. BOWEL TONES ACTIVE. PT DENIES ABD DISTENSION. PT DENIES QUESTIONS OR CONCERNS. CALL LIGHT IN REACH.
[2024-07-01] VITALS (10 sets, daily range): BP systolic 140–173; BP diastolic 62–82
--- NOTE | 2024-07-01 00:41 | NUR ---
PT RESTING IN BED WITH EYES CLOSED. RESPIRATIONS EVEN. CALL LIGHT IN REACH.
--- NOTE | 2024-07-01 01:56 | NUR ---
PT IN BED RESTING WITH EYES CLOSED. RESPIRATIONS EVEN. IV ABX INFUSING WNL. BED ALARM FOR SAFETY. CALL LIGHT IN REACH.
--- NOTE | 2024-07-01 03:04 | NUR ---
IV PUMP ALARMING. ISSUE RESOLVED. PT UP TO BR WITH CANE AND SBA TO VOID. BACK TO BED, CINDY WELL. PT DENIES PAIN OR NAUSEA. REQUESTING HALF A CUP OF COFFEE, PROVIDED. NO FURTHER NEEDS. CALL LIGHT IN REACH. BED ALARM FOR SAFETY.
[2024-07-01 05:46] LABS: BASOPHILS 0.3 % (0-2); EOSINOPHILS 1.1 % (0-6); HEMATOCRIT 30.3 % (35.0-50.0); HEMOGLOBIN 10.2 g/dL (12.0-18.0); LYMPHOCYTES 6.2 % (24-44); MCH 30.2 (27-36); MCHC 33.5 g/dl (30-36); MCV 90.2 fl (81-99); MONOCYTES 8.6 % (0-12); NEUTROPHILS 83.8 % (39-80); PLATELET COUNT 306 K/uL (140-440); RBC 3.36 M/ul (4.3-5.7)
--- NOTE | 2024-07-01 05:49 | NUR ---
LAB IN FOR MORNING DRAW. PT UP TO BR WITH SBA AND CANE TO VOID. GAIT STEADY. DAILY WEIGHT IN OBTAINED. BACK TO BED. VS AND I&O OBTAINED. SCHEDULED MEDS ADMIN PER EMAR. NO FURTHER NEEDS. CALL LIGHT IN REACH.
[2024-07-01 05:54] LABS: ALBUMIN/GLOBULIN RATIO 0.53 (1.1-2.4); ANION GAP 12.8 (7-21); BILIRUBIN, TOTAL 0.4 mg/dL (0.2-1.0); BUN/CREATININE RATIO 14.81 (6.0-28.6); CALCIUM 7.7 mg/dL (8.5-10.1); CREATININE, SERUM 0.81 mg/dL (0.70-1.30); POTASSIUM 2.8 mmol/L (3.5-5.1); PROTEIN, TOTAL 5.8 g/dL (6.4-8.2)
--- NOTE | 2024-07-01 07:39 | NUR ---
PT WAS RESTING EYES CLOSED AT TIME OF SHIFT REPORT, HE IS AWAKE NOW STATES "I'M READY TO GO HOME" DENIES PAIN OR DISCOMFORTS. FRESH H20 TO BEDSIDE CALL LIGHT IN REACH.
[2024-07-01] MEDS ORDERED: POTASSIUM CHLORIDE 40 MEQ in DEXTROSE 5% 250 ML IV ONE (08:45)
--- NOTE | 2024-07-01 09:24 | NUR ---
PT IS UP TO THE CHAIR FOR MORNING MEAL WELL TOLERATED. DR ROYAL IN TO SEE PT ALL QUESTIONS ANSWERED. PT ANTICIPATES GOING HOME LATER TODAY OR POSSIBLY TOMORROW. DENIES FURTHER QUESTIONS OR NEEDS OF
--- NOTE | 2024-07-01 10:21 | NUR ---
PT RESTING EYES CLOSED SNORING SOFTLY. NEEDED ITEMS IN REACH POTASSIUM INFUSING ORDERED
--- NOTE | 2024-07-01 11:03 | NUR ---
INTO SEE PATIENT. PATIENT RESTING IN BED WATCHING TV. PATIENT STATES HE WILL BE DISCHARGE THIS AFTERNOON. PATIENT SONS TO PICK HIM UP AT TIME OF DISCHARGE TO TAKE HOME. NO FUTHER CM NEEDS AT THIS TIME.
--- NOTE | 2024-07-01 12:11 | NUR ---
Today I find Raoul in his bed, low-semi fowlers position, awake, alert and oriented to person, place and time. Upcoming discharge discussed with Raoul who states "I would like to go now but I can't leave until 6:00 tonight." IMM letter explained, Raoul states that he is agreeable to his home discharge plan, IMM letter is signed and a signed copy of the letter is provided to Raoul. When asked about his care Raoul states "My care has been superb, I cannot say enough about the quality of care that I have received while I have been in the hospital." Raoul expresses no concerns or needs at this time.
--- NOTE | 2024-07-01 12:48 | NUR ---
PT DECLINES CHAIR AND CHOOSES TO EAT NOON MEAL IN BED
--- NOTE | 2024-07-01 14:27 | NUR ---
PT HAS BEEN UP IN THE CHAIR THEN RETURNS TO THE BED FOR A TIME THEN BACK TO THE CHAIR THIS SHIFT. HE HAS HAD VISITORS X2. RESTING IN BED NOW POTASSIUM COMPLETE ABX STARTED
--- NOTE | 2024-07-01 16:24 | NUR ---
THIS MORNING PATIENT BRUSHED HIS TEETH AND WASHED HIS FACE WHILE SITTING UP IN HIS CHAIR. BED LINENS CHANGED. CALL LIGHT WITH IN REACH AND TV CONTROLLER. PATIENT ALSO REFUSED SHOWER DO TO TAKING ONE ON MONDAY AND MIGHT GO HOME SOMETIME TODAY.
--- NOTE | 2024-07-01 18:06 | NUR ---
EVENING MEAL WELL TOLERATED NO C/O PAIN OR NAUSEA. PT IS UP TO THE CHAIR LOOKING OUT THE WINDOW DENIES NEED OF ANYTHING. 1800 LABS HAVE BEEN DRAWN
[2024-07-01 18:11] LABS: ANION GAP 10.8 (7-21); BUN/CREATININE RATIO 14.13 (6.0-28.6); CALCIUM 7.7 mg/dL (8.5-10.1); CREATININE, SERUM 0.92 mg/dL (0.70-1.30); MAGNESIUM 1.7 mg/dL (1.8-2.4); POTASSIUM 2.8 mmol/L (3.5-5.1)
--- NOTE | 2024-07-01 19:19 | NUR ---
REPORT RECEIVED FROM DAY SHIFT RN. PT SITTING IN RECLINER ALERT AND ORIENTED. DENIES NEEDS. WHITE BOARD UPDATED. CALL LIGHT IN REACH.
[2024-07-01] MEDS ORDERED: POTASSIUM CHLORIDE 10 MEQ/100 ML BAG IV SCH ×3 (19:30→23:00)
[2024-07-01] MEDS ORDERED: MAGNESIUM SULFATE 1 GM/2 ML VIAL IV ONE (19:30)
[2024-07-01] MEDS ORDERED: MAGNESIUM SULFATE 2 GM/50 ML BAG IV ONE (19:45)
--- NOTE | 2024-07-01 20:03 | NUR ---
PT UP TO BR WITH SBA TO VOID. BACK TO BED, CINDY WELL. IV MAG AND BAG 1 OF 8 POTASSIUM INFUSING WNL.
[2024-07-01 20:10] LABS: HELICOBACTER PYLORI AG,BY EIA Negative (Negative)
--- NOTE | 2024-07-01 21:15 | NUR ---
EVENING ASSESSMENT COMPLETE. SCHEDULED MEDS ADMIN PER EMAR. PT DENIES PAIN OR NAUSEA. ABD SOFT. BOWEL TONES ACTIVE. NEW 20G PIV PLACED IN LEFT FOREARM FOLLOWING STERILE PROCEDURE AFTER ONE ATTEMPT BY THIS RN. PT CINDY WELL. BAG 2 OF 8 IV POTASSIUM INFUSING PER ORDER, PT CINDY WELL. NO FURTHER NEEDS AT THIS TIME. CALL LIGHT IN REACH.
--- NOTE | 2024-07-01 21:45 | NUR ---
NEW TELEPHONE ORDERS RECEIVED VERIFIED WITH READBACK METHOD TO CHANGE POTASSIUM ORDERS FROM 80 MEQ TO 60 MEQ IV POTASSIUM.
--- NOTE | 2024-07-01 23:22 | NUR ---
SCHEDULED MEDS ADMIN PER EMAR. PT REQUESTING TYLENOL, ADMIN PER EMAR. WARM BLANKET PROVIDED FOR COMFORT. NO FURTHER NEEDS.
--- NOTE | 2024-07-01 23:45 | NUR ---
PATIENT CALLED. PATIENT UP TO USE THE BATHROOM SBA WITH MINIMAL ASSIST. PATIENT VOIDED UNMEASURED APPEARS MEDIUM QUANTITY YELLOW URINE. PATIENT C/O ITCHINESS ON HIS BACK. NOTICED SOME RED DOTS. LOTION APPLIED PER PATIENT'S REQUEST. PATIENT STATED THAT HELPED. PATIENT IS BACK IN BED. NO FURTHER NEEDS AT THIS TIME.
--- NOTE | 2024-07-02 01:22 | NUR ---
PT RESTING IN BED WITH EYES CLOSED. RESPIRATIONS EVEN. BAG 6 OF 6 POTASSIUM INFUSING WNL. IV SITE PATENT.
--- NOTE | 2024-07-02 02:31 | NUR ---
IV POTASSIUM COMPLETE. PT SL PER ORDER.
--- NOTE | 2024-07-02 02:49 | NUR ---
CALL LIGHT IN REACH. PT UP TO BR WITH CANE AND SBA TO VOID AN UNMEASURED AMOUNT. BACK TO BED, CINDY WELL. ASSESSMENT UNCHANGED. NO FURTHER NEEDS. CALL LIGHT IN REACH.
--- NOTE | 2024-07-02 03:15 | NUR ---
PT UP TO BR TO VOID AND ATTEMPT BM WITH NO RESULTS. BACK TO BED, CINDY WELL. COFFEE PROVIDED PER REQUEST. NO FURTHER NEEDS.
[2024-07-02 04:54] VITALS: BP 139/80
--- NOTE | 2024-07-02 04:59 | NUR ---
PATIENT UP TO THE BATHROOM USING CANE SBA. VOIDED UNMEASURED AND HAD SMALL BM. PATIENT IS BACK IN BED. V/S, I&O'S AND WEIGHT COMPLETED AND CHARTED. COFFEE PROVIDED PER PATIENT'S REQUEST. NO FURTHER NEEDS AT THIS TIME.
[2024-07-02 05:00] LABS: ANION GAP 13.3 (7-21); BUN/CREATININE RATIO 12.35 (6.0-28.6); CALCIUM 7.8 mg/dL (8.5-10.1); CREATININE, SERUM 0.89 mg/dL (0.70-1.30); MAGNESIUM 2.1 mg/dL (1.8-2.4); POTASSIUM 3.3 mmol/L (3.5-5.1)
[2024-07-02] MEDS ORDERED: POTASSIUM CHLORIDE 10 MEQ/100 ML BAG IV SCH (05:00)
[2024-07-02] MEDS ORDERED: POTASSIUM CHLORIDE 10 MEQ/100 ML BAG IV ONE (06:45)
--- NOTE | 2024-07-02 06:45 | NUR ---
CALL LIGHT ANSWERED. PT UP TO BR WITH CANE AND SBA TO VOID AND HAVE LARGE LOOSE BM. AT SINK TO WASH HANDS. BACK TO BED, CINDY WELL. NO FURTHER NEEDS. CALL LIGHT IN REACH.
--- NOTE | 2024-07-02 07:29 | NUR ---
PT AWAKE AND RESTING IN BED AT TIME OF SHIFT REPORT. DR CARR IN TO SEE HIM AND DISCUSS DC AND PLAN GOING FORWARD. ALL QUESTIONS ANSWERED. PT HAS FRESH H20 AND CALL LIGHT IN REACH
[2024-07-02] MEDS ORDERED: AMOX TR-K CLV1 EAC1 PO (08:22)
[2024-07-02] MEDS ORDERED: POTASSIUM CHLORIDE 40 MEQ in DEXTROSE 5% 250 ML IV ONE (09:00)
--- NOTE | 2024-07-02 09:17 | NUR ---
PT UP TO THE TOILET THEN BACK TO BED. VISITOR IS PRESENT. PT POTASSIUM INFUSING ANTICIPATES DC AFTER THAT
[2024-07-02 09:50] VITALS: BP 148/78
--- NOTE | 2024-07-02 10:24 | NUR ---
PT SITTING UP IN THE CHAIR FAMILY PRESENT X2. DC INSTRUCTIONS PROVIDED LOW FAT DIET INSTRUCTIONS INCLUDED. POTASSIUM CONTINUES TO INFUSE ANTICIPATE DC IN 1 HOUR
[2024-07-02 10:25] VITALS: BP 148/78
--- NOTE | 2024-07-02 10:45 | NUR ---
Spoke with Raoul. He plans on dc today. He denies any needs to go home. Son is in the room and again states he is two blocks away. Home today.
== END 2024-07-02 11:45 | disposition home or self-care (01) | DRG 445 ==
LOC: ED 05:42 → MS 05:43
PROVIDERS: Internal Medicine; Student in an Organized Health Care Education/Training Program; ADMIT Transplant Surgery; ATTEND Transplant Surgery
DX: K81.0 Acute cholecystitis (principal); I48.92 Unspecified atrial flutter; K21.9 Gastro-esophageal reflux disease without esophagitis; E78.5 Hyperlipidemia, unspecified; E03.9 Hypothyroidism, unspecified; E11.9 Type 2 diabetes mellitus without complications; D53.9 Nutritional anemia, unspecified; E87.6 Hypokalemia; Z88.8 Allergy status to other drugs, medicaments and biological substances; I44.0 Atrioventricular block, first degree; I11.0 Hypertensive heart disease with heart failure; I50.9 Heart failure, unspecified; N40.0 Benign prostatic hyperplasia without lower urinary tract symptoms; I48.91 Unspecified atrial fibrillation; Z90.49 Acquired absence of other specified parts of digestive tract; Z90.89 Acquired absence of other organs; Z98.890 Other specified postprocedural states
CPT/HCPCS: 36415; 71045; 74176; 80048; 80053; 81001; 83690; 83735; 84443; 84484; 85025; 85610; 85730; 87338; 93005; 93010; 94799; 97116; 97161; 97165; 97530; A9270; J1815; J1940; J2270; J2405; J2543; J3475; J3480; J7060; J7121